=== PATIENT | female | born 1975 | race Caucasian/White ===

== ENCOUNTER 2016-07-24 07:35 | Inpatient (IN) | payer BC, OTHER ==
[2016-07-24] MEDS ORDERED: ELECTROLYTE-148 SOLN 500 ML IV SCH ×2 (07:45→08:15)
[2016-07-24] MEDS ORDERED: CITRIC ACID/SODIUM CITRATE 30 ML UNIT-DOSE CUP PO ONE (07:45)
[2016-07-24] MEDS ORDERED: TUBERCULIN PPD 5 TU/0.1ML SYRINGE (IN PATIENT USE ONLY) ID ONE (08:15)
[2016-07-24 08:25] VITALS: BMI 29.1
[2016-07-24] MEDS ORDERED: ONDANSETRON 4 MG/2 ML VIAL IVPB PRN (08:43)
[2016-07-24] MEDS ORDERED: IBUPROFEN 600 MG TABLET (FP) PO PRN (08:43)
[2016-07-24] MEDS ORDERED: morphine SULFATE/Preservative Free 0.5 MG/ML (1cc Syringe) EP ONE (08:43)
--- NOTE | 2016-07-24 09:18 | HP ---
Past Medical History - Primary Care Physician PCP:: Roberto Rahman - Admission Chief Complaint: 37 weeks, iugr, ama, requesting c/s History of Present Illness: 41 yo f 37 weeks with hx of iugr, elevated umbilical artery doppler , advised by [facility] Dr aly to be delivered at 37 weeks, cx clp. head out of pelvis , declined induction wants c/s, risks of c/s discussed, fully aware of all risks History Source: Patient Limitations to Obtaining History: No Limitations - Past Medical History Gastrointestinal: Yes: Gastritis ...: 2 ...Para: 0 ...Spon : 1 ...EDC by Sono: 08/09/16 Endocrine: Yes: Hypothyroidism (on levothyroxine) - Past Surgical History Hx Myomectomy: No Hx Transabdominal Cerclage: No - Smoking History Smoking history: Never smoked Have you smoked in the past 12 months: No - Alcohol/Substance Use Hx Alcohol Use: No History of Substance Use: reports: None - Social History Usual Living Arrangement: Yes: With Spouse History of Recent Travel: No Home Medications - Allergies Allergies/Adverse Reactions: Allergies Allergy/AdvReac Type Severity Reaction Status Date / Time No Known Drug Allergies Allergy Verified 07/21/16 06:20 - Home Medications Home Medications: Ambulatory Orders Levothyroxine [Synthroid -] 50 mcg PO DAILY@0700 04/18/16 Pnv95/Ferrous Fumarate/FA [ Vitamin Tablet] 1 each PO DAILY 05/31/16 Review of Systems - Review of Systems Constitutional: reports: No Symptoms Eyes: reports: No Symptoms HENT: reports: No Symptoms Neck: reports: No Symptoms Cardiovascular: reports: No Symptoms Respiratory: reports: No Symptoms Gastrointestinal: reports: No Symptoms Genitourinary: reports: No Symptoms Breasts: reports: No Symptoms Reported Integumentary: reports: No Symptoms Neurological: reports: No Symptoms Endocrine: reports: No Symptoms Hematology/Lymphatic: reports: No Symptoms Psychiatric: reports: No Symptoms 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 - Maternity Vital Signs: Vital Signs Temperature 98.1 F 07/24/16 08:10 Pulse Rate 66 07/24/16 08:10 Respiratory Rate 20 07/24/16 08:10 Blood Pressure 113/70 07/24/16 08:10 O2 Sat by Pulse Oximetry (%) Constitutional: Yes: Well Nourished, No Distress, Calm Eyes: Yes: WNL, Conjunctiva Clear, EOM Intact HENT: Yes: WNL, Atraumatic, Normocephalic Neck: Yes: WNL, Supple, Trachea Midline Cardiovascular: Yes: WNL, Regular Rate and Rhythm Breast(s): Yes: WNL - Abdominal Exam/OB Fundal Height: 36 Number of Fetuses: Single Presentation: Vertex Contractions: No Regularity: Irritability Intensity: Unaware Monitor Mode: External Heart Rate (range): 140 Heart Rate Location: [facility] Category: I Accelerations: Uniform Decelerations: None - Vaginal Exam/OB Vaginal Bleediing: No Speculum Exam: No Dilatation (cm): closed Effacement (%): 0 Amniotic Membrane Status: Intact Presentation: Vertex/Position Station: -4 - 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 Musculoskeletal: Yes: WNL Extremities: Yes: WNL Integumentary: Yes: WNL ...Motor Strength: WNL Psychiatric: Yes: WNL Problem List - Problems (1) with 37 or more completed weeks gestation Code(s): DBE9648 - (2) Intrauterine growth restriction (IUGR) affecting care of mother Code(s): O36.5990 - MATERN CARE FOR OTH OR SUSP POOR FETL GRTH, UNSP TRI, UNSP Qualifiers: Fetus number: single or unspecified fetus Qualified Code(s): - (3) Conceived by in vitro fertilization Code(s): Z78.9 - OTHER SPECIFIED HEALTH STATUS (4) Advanced maternal age (AMA) in Code(s): TUP0016 - Assessment/Plan requesting c/s rba discussed
[2016-07-24] MEDS ORDERED: diphenhydrAMINE HCL 25 MG CAPSULE (FP) PO PRN (10:11)
[2016-07-24] MEDS ORDERED: WITCH HAZEL 50% (TUCKS) 40 PAD/JAR PAD TP PRN (10:11)
[2016-07-24] MEDS ORDERED: METHYLERGONOVINE MALEATE 0.2 MG/1 ML AMP IM PRN (10:11)
[2016-07-24] MEDS ORDERED: BENZOCAINE 28 GM HEMORRHOIDAL OINTMENT PR PRN (10:11)
[2016-07-24] MEDS ORDERED: oxyCODONE HCL 5 MG TABLET PO PRN (10:11)
[2016-07-24] MEDS ORDERED: IBUPROFEN 800 MG/8 ML IJ IVPB PRN (10:11)
[2016-07-24] MEDS ORDERED: BENZOCAINE 20% 57 GM BOTTLE TP PRN (10:11)
[2016-07-24] MEDS ORDERED: OXYTOCIN 20 UNITS in 0.9% NS 1,000 ML IV SCH (10:15)
[2016-07-24 10:18] LABS: ARTERIAL BLD GAS O2 SATURATION 27.6 % (90-98.9); ARTERIAL BLOOD GAS HCO3 26.1 meq/L (22-26)
[2016-07-24 10:21] LABS: ARTERIAL BLOOD GAS PO2 16.2 mmHg (80-100); ARTERIAL BLOOD GAS pH 7.34 (7.35-7.45)
[2016-07-24 10:25] LABS: VENOUS PH 7.39 (7.32-7.42)
--- NOTE | 2016-07-24 10:51 | OP ---
DATE OF OPERATION: 07/24/2016 PREOPERATIVE DIAGNOSIS: 47 weeks, advanced maternal age, intrauterine growth retardation, elevated umbilical artery Doppler, and in vitro fertilization , noninducible cervix, request of a section. POSTOPERATIVE DIAGNOSIS: 47 weeks, advanced maternal age, intrauterine growth retardation, elevated umbilical artery Doppler, and in vitro fertilization , noninducible cervix, request of a section. PROCEDURE: Primary low segment transverse section. SURGEON: Roberto Rahman MD SUPERINTENDENT WAREHOUSE: Toi Guallpa MD ANESTHESIA: Spinal. ANESTHESIOLOGIST: Ashkan Garcia MD ESTIMATED BLOOD LOSS: 500 mL. FINDINGS: A live baby girl 9/9, left occiput posterior position. DESCRIPTION OF PROCEDURE: The patient was taken to the operating room under adequate spinal anesthesia. Abdomen and perineum was prepped and draped. Pfannenstiel abdominal skin incision was made. Abdominal wall was cut layer by layer until the peritoneum was exposed and incised. Upon entering the abdominal cavity, lower uterine segment was identified, and uterovesical fold of peritoneum established. Bladder was pushed down. The of the [place] retractor in the pelvis. A low transverse uterine incision was made. Incision was extended laterally. Amniotic sac was entered. Clear fluid. Head delivered from left occiput posterior position. Nasopharynx was suctioned, and live baby girl was delivered without any difficulty. Placenta was delivered manually. Uterine cavity was cleaned of all remaining tissue. Uterine incision was closed in 2 layers, the first layer with 0 Biosyn continuous suture, the second layer with 0 Biosyn imbricating the first layer. Bladder flap was closed with 0 Biosyn continuous suture. Both tubes and ovaries were checked and normal. No active bleeding was seen. All of the lap pad, sponge, and instrument counts were correct. Peritoneum was closed with 0 Biosyn continuous suture. Muscles were brought together with interrupted sutures of 0 Biosyn. Fascia was closed with 0 Biosyn continuous suture, subcutaneous fat interrupted suture of 0 Biosyn, and the skin was closed with 3-0 Vicryl subcuticular continuous suture. The patient tolerated the procedure well and left the OR in good condition. ROBERTO RAHMAN M.D. [id number]
[2016-07-24] MEDS: IBUPROFEN 800 MG/8 ML IJ IVPB PRN (12:15)
[2016-07-24] MEDS ORDERED: DEXTROSE 5%-LACTATED RINGERS 1,000 ML IV SCH (18:15)
[2016-07-24] MEDS: CEFAZOLIN (PRE-DOCKED) 50 ML IVPB SCH (18:30)
[2016-07-25] MEDS: CEFAZOLIN (PRE-DOCKED) 50 ML IVPB SCH (01:27)
[2016-07-25] MEDS: IBUPROFEN 800 MG/8 ML IJ IVPB PRN (04:59)
[2016-07-25] MEDS: LEVOTHYROXINE NA 50 MCG TABLET (FP) PO SCH (06:30)
[2016-07-25 06:47] LABS: BASOPHIL 0.3 % (0-2.0); EOSINOPHIL 0.3 % (0-4.5); MCH 28.7 pg (25.7-33.7); MEAN PLT VOLUME 10.7 fl (7.5-11.1); NEUTROPHILS 84.3 % (42.8-82.8); PLATELET COUNT 76 K/MM3 (134-434); RDW 16.5 % (11.6-15.6); WHITE BLOOD COUNT 12.5 K/mm3 (4.0-10.0)
[2016-07-25] MEDS: PRENATAL VITAMINS W/ FOLIC ACID TABLET (FP) PO SCH (09:00)
[2016-07-25] MEDS: ENOXAPARIN NA (PORCINE) 40 MG/0.4 ML DISP.SYRIN SQ SCH (09:01)
--- NOTE | 2016-07-25 10:43 | PN ---
Progress Note (short form) - Note Progress Note: Procedure Note Procedure: Anesthesia post op note. S/P in Spinal. Pat seen and examined. VSS. No apparent post anesthesia complications. Signed off.
[2016-07-25] MEDS: ACETAMINOPHEN 325 MG TABLET (FP) PO PRN ×2 (11:31→16:15)
[2016-07-25] MEDS: oxyCODONE HCL 5 MG TABLET PO PRN ×3 (11:33→21:21)
[2016-07-25] MEDS: SIMETHICONE 80 MG TAB.CHEW (FP) PO PRN ×3 (11:33→21:20)
[2016-07-25] MEDS: BISACODYL 10 MG SUPP.RECT RC PRN (16:17)
--- NOTE | 2016-07-25 18:02 | PN ---
Post Progress Note - Subjective Subjective: No complaints. Post Day: 1 Type of Delivery: Primary C/S Vital Signs: Vital Signs Temperature 98 F 07/25/16 10:00 Pulse Rate 60 07/25/16 10:00 Respiratory Rate 20 07/25/16 10:00 Blood Pressure 115/65 07/25/16 10:00 O2 Sat by Pulse Oximetry (%) Breast Exam: Yes: Soft Uterus: Yes: Fundus Firm, Non-tender Incision: Yes: Dressing dry and intact Abdomen/GI: Yes: Abdomen soft Lochia: Yes: Rubra Lochia, amount: Small Extremities: Yes: Calves non-tender Perineum: Yes: Intact Activity: Ambulating - Labs Labs: CBC WBC 12.5 K/mm3 (4.0-10.0) H D 07/25/16 05:46 RBC 3.67 M/mm3 (3.60-5.2) 07/25/16 05:46 Hgb 10.5 GM/dL (10.7-15.3) L D 07/25/16 05:46 Hct 31.9 % (32.4-45.2) L 07/25/16 05:46 MCV 87.0 fl (80-96) 07/25/16 05:46 MCHC 33.0 g/dl (32.0-36.0) 07/25/16 05:46 RDW 16.5 % (11.6-15.6) H 07/25/16 05:46 Plt Count 76 K/MM3 (134-434) L D 07/25/16 05:46 MPV 10.7 fl (7.5-11.1) 07/25/16 05:46 Neutrophils % 84.3 % (42.8-82.8) H 07/25/16 05:46 Lymphocytes % 10.9 % (8-40) D 07/25/16 05:46 Monocytes % 4.2 % (3.8-10.2) 07/25/16 05:46 Eosinophils % 0.3 % (0-4.5) 07/25/16 05:46 Basophils % 0.3 % (0-2.0) 07/25/16 05:46 Assessment/Plan 41yo P1 s/p primary LT C/S. Pt is doing well postop. Ambulation encouraged Low plt count noted. Repeat tomorrow. No evid of PEC or DIC.
[2016-07-25] MEDS: IBUPROFEN 600 MG TABLET (FP) PO PRN (21:20)
[2016-07-26] MEDS: IBUPROFEN 600 MG TABLET (FP) PO PRN ×4 (05:58→21:40)
[2016-07-26] MEDS: SIMETHICONE 80 MG TAB.CHEW (FP) PO PRN ×4 (05:58→21:40)
[2016-07-26] MEDS: ACETAMINOPHEN 325 MG TABLET (FP) PO PRN ×4 (05:59→21:40)
[2016-07-26] MEDS: BISACODYL 10 MG SUPP.RECT RC PRN (06:13)
[2016-07-26] MEDS: LEVOTHYROXINE NA 50 MCG TABLET (FP) PO SCH (06:14)
[2016-07-26 08:50] LABS: BASOPHIL 0.2 % (0-2.0); EOSINOPHIL 0.2 % (0-4.5); MCH 28.5 pg (25.7-33.7); MCHC 32.7 g/dl (32.0-36.0); MEAN CELL VOLUME 87.2 fl (80-96); MEAN PLT VOLUME 10.5 fl (7.5-11.1); NEUTROPHILS 84.7 % (42.8-82.8); PLATELET COUNT 94 K/MM3 (134-434); RDW 16.7 % (11.6-15.6); WHITE BLOOD COUNT 12.7 K/mm3 (4.0-10.0)
--- NOTE | 2016-07-26 08:54 | PN ---
Post Progress Note - Subjective Subjective: No complaints, lochia light, (+) flatus Post Day: 2 Type of Delivery: Primary C/S Vital Signs: Vital Signs Temperature 97.7 F 07/26/16 08:43 Pulse Rate 64 07/26/16 08:43 Respiratory Rate 18 07/26/16 08:43 Blood Pressure 111/66 07/26/16 08:43 O2 Sat by Pulse Oximetry (%) Breast Exam: Yes: Soft Uterus: Yes: Fundus Firm, Fundus below umbilicus, Non-tender Incision: Yes: Dressing dry and intact Abdomen/GI: Yes: Abdomen soft, Passing flatus, Tolerating PO Lochia: Yes: Rubra Lochia, amount: Small Extremities: Yes: Calves non-tender, Edema Perineum: Yes: Intact Activity: Ambulating - Labs Labs: CBC WBC 12.5 K/mm3 (4.0-10.0) H D 07/25/16 05:46 RBC 3.67 M/mm3 (3.60-5.2) 07/25/16 05:46 Hgb 10.5 GM/dL (10.7-15.3) L D 07/25/16 05:46 Hct 31.9 % (32.4-45.2) L 07/25/16 05:46 MCV 87.0 fl (80-96) 07/25/16 05:46 MCHC 33.0 g/dl (32.0-36.0) 07/25/16 05:46 RDW 16.5 % (11.6-15.6) H 07/25/16 05:46 Plt Count 76 K/MM3 (134-434) L D 07/25/16 05:46 MPV 10.7 fl (7.5-11.1) 07/25/16 05:46 Neutrophils % 84.3 % (42.8-82.8) H 07/25/16 05:46 Lymphocytes % 10.9 % (8-40) D 07/25/16 05:46 Monocytes % 4.2 % (3.8-10.2) 07/25/16 05:46 Eosinophils % 0.3 % (0-4.5) 07/25/16 05:46 Basophils % 0.3 % (0-2.0) 05/17/17 05:46 Assessment/Plan 41yo P1 s/p primary LT C/S. Pt is doing well postop. Ambulation encouraged Low plt count noted. The CBC today is pending No evidence of PEC or DIC.
[2016-07-26] MEDS: ENOXAPARIN NA (PORCINE) 40 MG/0.4 ML DISP.SYRIN SQ SCH (09:38)
[2016-07-26] MEDS: PRENATAL VITAMINS W/ FOLIC ACID TABLET (FP) PO SCH (09:45)
[2016-07-26] MEDS: SENNOSIDES/DOCUSATE COMBO (SENNA PLUS) TABLET (UD) PO PRN (21:41)
[2016-07-27] MEDS: SIMETHICONE 80 MG TAB.CHEW (FP) PO PRN ×4 (05:55→21:47)
[2016-07-27] MEDS: ACETAMINOPHEN 325 MG TABLET (FP) PO PRN ×4 (05:55→21:47)
[2016-07-27] MEDS: IBUPROFEN 600 MG TABLET (FP) PO PRN ×4 (05:56→21:47)
[2016-07-27] MEDS: LEVOTHYROXINE NA 50 MCG TABLET (FP) PO SCH (06:55)
[2016-07-27 08:26] LABS: BASOPHIL 0.4 % (0-2.0); EOSINOPHIL 0.9 % (0-4.5); MCH 29.2 pg (25.7-33.7); MCHC 33.4 g/dl (32.0-36.0); MEAN CELL VOLUME 87.4 fl (80-96); MEAN PLT VOLUME 10.8 fl (7.5-11.1); NEUTROPHILS 81.5 % (42.8-82.8); PLATELET COUNT 114 K/MM3 (134-434); WHITE BLOOD COUNT 10.5 K/mm3 (4.0-10.0)
[2016-07-27] MEDS: PRENATAL VITAMINS W/ FOLIC ACID TABLET (FP) PO SCH (10:14)
[2016-07-27] MEDS: ENOXAPARIN NA (PORCINE) 40 MG/0.4 ML DISP.SYRIN SQ SCH (10:14)
--- NOTE | 2016-07-27 12:00 | PN ---
Progress Note (short form) - Note Progress Note: no c/o voids ok, normal BM CBC, BMP 07/27/16 07:40 Last Vital Signs Temp Pulse Resp BP Pulse Ox 98.5 F 64 20 120/74 07/27/16 09:04 07/27/16 09:04 07/27/16 09:04 07/27/16 09:04 abdomen soft, no distension, no cva incision dry, clean no calf tenderness no excess vaginal bleeding plan ambulate, d/c home in am Problem List - Problems (1) with 37 or more completed weeks gestation Code(s): [id number] - (2) Intrauterine growth restriction (IUGR) affecting care of mother Code(s): O36.5990 - MATERN CARE FOR OTH OR SUSP POOR FETL GRTH, UNSP TRI, UNSP Qualifiers: Fetus number: single or unspecified fetus (3) Conceived by in vitro fertilization Code(s): Z78.9 - OTHER SPECIFIED HEALTH STATUS (4) Advanced maternal age (AMA) in Code(s): [id number] -
[2016-07-27] MEDS: SENNOSIDES/DOCUSATE COMBO (SENNA PLUS) TABLET (UD) PO PRN (21:47)
[2016-07-28] MEDS: IBUPROFEN 600 MG TABLET (FP) PO PRN ×2 (05:54→12:00)
[2016-07-28] MEDS: ACETAMINOPHEN 325 MG TABLET (FP) PO PRN ×2 (05:54→12:01)
[2016-07-28] MEDS: SIMETHICONE 80 MG TAB.CHEW (FP) PO PRN ×2 (05:54→12:01)
[2016-07-28] MEDS: LEVOTHYROXINE NA 50 MCG TABLET (FP) PO SCH (06:28)
[2016-07-28] MEDS: PRENATAL VITAMINS W/ FOLIC ACID TABLET (FP) PO SCH (10:05)
[2016-07-28] MEDS: ENOXAPARIN NA (PORCINE) 40 MG/0.4 ML DISP.SYRIN SQ SCH (10:05)
[2016-07-28 11:05] VITALS: BP 123/66; PULSE 58; TEMP 98.5
--- NOTE | 2016-08-01 13:05 | PATH ---
Surgical Pathology Report Patient Name: XENA JENKINS Med. Rec. #: [id number] /Age/Gender: 1975 (Age: 41) / F Account: [id number] Location: [facility] OBS/SOLAR DESIGN ENGINEER Taken: 07/24/2016 Received: 07/25/2016 Reported: 08/01/2016 Physicians: Roberto Rahman M.D. Specimen(s) Received PLACENTA Clinical History , primary c/section, AMA, IUGR,; SPAB x1 Final Diagnosis PLACENTA, DELIVERY: MULTIFOCALLY DISRUPTED, SMALL (<400 GM), THIRD TRIMESTER PLACENTA WITH MILD INCREASE IN PREVILLOUS, PERIVILLOUS, AND PRECHORIONIC FIBRIN DEPOSITION, THREE VESSEL UMBILICAL CORD, AND PLACENTAL MEMBRANES WITH LAMELLAR NECROSIS. Electronically Signed Justin Clement M.D. Gross Description The specimen is received fresh, labeled "placenta" and is a 322 gram, 14.0 x 14.0 x 2.8 cm aggregate of 2 separate portions of a markedly torn and fragmented placenta with attached membranes and umbilical cord. The attached membranes are bob, translucent with focal opacities and insert marginally. The umbilical cord measures 12 cm in length and averages 1 cm in diameter. The cord displays velamentous insertion. No true knots or strictures are identified. Cut surface of the umbilical cord reveals 3 vessels. The surface is thompson-blue with fibrin deposition and appropriate caliber vessels. The maternal surface is red-brown, markedly fragmented and disrupted. Sectioning reveals red-brown, spongy parenchyma. No focal lesions are identified. Surface Supervisor sections are submitted in 4 cassettes as follows: 1- membrane rolls and umbilical cord; 2- 4 - full thickness sections of placenta. 07/31/2016 [facility]07/31/2016
--- NOTE | 2016-08-14 12:11 | DS ---
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 Vital Signs: Vital Signs Temperature 98.5 F 07/28/16 10:00 Pulse Rate 58 L 07/28/16 10:00 Respiratory Rate 20 07/28/16 10:00 Blood Pressure 123/66 07/28/16 10:00 O2 Sat by Pulse Oximetry (%) Constitutional: Yes: Well Nourished, No Distress, Calm Eyes: Yes: WNL, Conjunctiva Clear, EOM Intact HENT: Yes: WNL, Atraumatic, Normocephalic Neck: Yes: WNL, Supple, Trachea Midline Cardiovascular: Yes: WNL, Regular Rate and Rhythm Respiratory: Yes: WNL, Regular, CTA Bilaterally Gastrointestinal: Yes: WNL ...Rectal Exam: Yes: WNL Renal/: Yes: WNL ....Post : Yes: Uterus firm, Uterus non-tender, Slight lochia rubra Breast(s): Yes: WNL Musculoskeletal: Yes: WNL Extremities: Yes: WNL Edema: No Integumentary: Yes: WNL Wound/Incision: Yes: Clean/Dry, Well Approximated, Sutures Intact Neurological: Yes: WNL, Alert, Oriented ...Motor Strength: WNL Psychiatric: Yes: WNL, Alert, Oriented Labs: CBC, BMP 07/27/16 07:40 Delivery - Delivery Section: Primary, Low Flap Transverse (no complication) Type of Anesthesia: Spinal Episiotomy/Laceration: None EBL (cc): 500 Delivery, Single - Stages of Labor Date of Delivery: 07/24/16 Time of Delivery: 09:41 Time Placenta Delivered: 09:43 Placenta: Yes: Expressed - Condition 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 Present: Yes Name: Arian Romeo Infant Gender: Female Weight: 5 lb 1 oz Position: Left, OT Total Hours ROM (Hrs/Mins): 1 min - 1 Minute Total Score: 8 5 Minutes Total Score: 9 - Merna Feeding Plan Initial Plan: Elected not to breastfeed exclusively throughout hospitalization Discharge Summary Reason For Visit: C/SECTION Procedures: Principal: primary LST c/s Hospital Course: non complicated Condition: Good - Instructions Diet, Activity, Other Instructions: regular diet, follow office 2weeks Referrals: Roberto Rahman MD [Staff Physician] - Disposition: HOME - Home Medications Comprehensive Discharge Medication List: Ambulatory Orders Levothyroxine [Synthroid -] 50 mcg PO DAILY@0700 04/18/16 Pnv95/Ferrous Fumarate/FA [ Vitamin Tablet] 1 each PO DAILY 05/31/16 Ibuprofen [Motrin -] 600 mg PO QID #28 tablet 07/26/16
== END 2016-07-28 14:30 | disposition home or self-care (01) | DRG 766 ==
LOC: JLDR 07:35 → J3W 17:40
PROVIDERS: ADMIT Obstetrics & Gynecology; ATTEND Obstetrics & Gynecology
PROC: 10D00Z1 Extraction of Products of Conception, Low, Open Approach (ICD-10-PCS; principal; 2016-07-24)
DX: O36.5930 Maternal care for other known or suspected poor fetal growth, third trimester, not applicable or unspecified (principal); O99.284 Endocrine, nutritional and metabolic diseases complicating childbirth; E03.9 Hypothyroidism, unspecified; Z3A.37 37 weeks gestation of pregnancy; Z37.0 Single live birth; Z78.9 Other specified health status
CPT/HCPCS: 36415; 36600; 82803; 85025; 88307-TC

== ENCOUNTER 2019-02-19 18:03 | Emergency (ER) | payer BC, OTHER ==
[2019-02-19 18:08] VITALS: BP 126/58; PULSE 87; TEMP 98; BMI 28.2
[2019-02-19] MEDS ORDERED: ACETAMINOPHEN 325 MG TABLET (FP) PO ONE (18:57)
[2019-02-19] MEDS ORDERED: ACETAMINOPHEN 325 MG TABLET (FP) ONE (19:05)
--- NOTE | 2019-02-19 19:12 | PDOC ---
*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 - Vital Signs Last Vital Signs Temp Pulse Resp BP Pulse Ox 98 F 87 18 126/58 L 99 02/19/19 18:05 02/19/19 18:05 02/19/19 18:05 02/19/19 18:05 02/19/19 18:05 Medical Decision Making - Medical Decision Making 02/19/19 19:12 Ms. Higgins is a 43 y/o F (hx of 1 miscarriage), , LMP nov presenting with vaginal spotting from today. Pt had (+) home test Saw OB as an outpatient who did Serum Preg and said it was positive but low Pt is supposed to return for follow up on feb 27 Pt has lower abd discomfort and spotting Pt seen by Midlevel Provider under my direct supervision Pt interviewed and examined Agree with DEONTE exam Ancillary studies reviewed U/S - no IUP Laboratory Tests 02/19/19 02/19/19 19:10 19:10 Beta HCG, Quant 69.0 Urine Blood 3+ H Ur Leukocyte Esterase 1+ H Urine WBC (Auto) 19 Urine RBC (Auto) 335 I agree with plan as outlined by Midlevel Provider 02/19/19 19:51 02/19/19 20:25 02/19/19 20:28 Discharge - Discharge Information Problems reviewed: Yes Clinical Impression/Diagnosis: Vaginal bleeding affecting early Condition: Stable Disposition: HOME - Follow up/Referral - Patient Discharge Instructions Additional Instructions: Thank you for choosing [facility]. It was a pleasure taking care of you. Please return to the ER in 2 days for repeat blood work Recommend rest (no heavy work, no intercourse) until resolution of symptoms Return to the Emergency Department if your symptoms worsen or persist or have other concerning symptoms. Elisa por elegir el [facility]. Fue un placer cuidar de ti. Regrese a la roman de emergencias en 2 burgess para repetir el anlisis de doug. Se recomienda descansar (sin trabajo pesado, sin relaciones sexuales) hasta la resolucin de los sntomas Regrese al departamento de emergencias si ankit sntomas empeoran o persisten o si tiene otros sntomas preocupantes. - Post Discharge Activity
--- NOTE | 2019-02-19 19:22 | PDOC ---
History of Present Illness - General Chief Complaint: Vaginal Bleeding Stated Complaint: FIVE WK LA/VAGINAL BLEEDING Time Seen by Provider: 02/19/19 18:36 History Source: Patient Exam Limitations: Language Barrier (Phone manager application development used) Past History - Past Medical History Allergies/Adverse Reactions: Allergies Allergy/AdvReac Type Severity Reaction Status Date / Time No Known Drug Allergies Allergy Verified 02/19/19 18:08 Home Medications: Ambulatory Orders NK [No Known Home Medication] 02/19/19 Anemia: No Asthma: No Cancer: No Cardiac Disorders: No CVA: No COPD: No CHF: No Dementia: No Diabetes: No GI Disorders: Yes (CHRONIC GASTRITIS) Disorders: No HTN: No Hypercholesterolemia: No Liver Disease: No Seizures: No Thyroid Disease: Yes - Surgical History Abdominal Surgery: No Appendectomy: No Cardiac Surgery: No Cholecystectomy: No Lung Surgery: No Neurologic Surgery: No Orthopedic Surgery: No - Reproductive History Is Patient Now?: Yes (#): 1 Para: 0 Therapeutic (s) & number: No Spontaneous : 0 - Psycho Social/Smoking Cessation Hx Smoking History: Never smoked Have you smoked in the past 12 months: No Hx Alcohol Use: No Drug/Substance Use Hx: No Substance Use Type: None Hx Substance Use Treatment: No *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 - Vital Signs Last Vital Signs Temp Pulse Resp BP Pulse Ox 98 F 87 18 126/58 L 99 02/19/19 18:05 02/19/19 18:05 02/19/19 18:05 02/19/19 18:05 02/19/19 18:05 - 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 General Appearance: No: Apparent Distress Respiratory/Chest: positive: Lungs Clear, Normal Breath Sounds. negative: Respiratory Distress Cardiovascular: positive: Regular Rhythm, Regular Rate, S1, S2. negative: Murmur Gastrointestinal/Abdominal: positive: Normal Bowel Sounds, Soft. negative: Tender, Distended, Guarding, Rebound Musculoskeletal: negative: CVA Tenderness, CVA Tenderness (R), CVA Tenderness (L ) Neurologic: positive: Alert ED Treatment Course - RADIOLOGY Radiology Studies Ordered: Category Date Time Status TRANSVAGINAL US PREG [US] Stat Ultrasound 02/19/19 18:37 Ordered Medical Decision Making - Medical Decision Making 43 y/o F (hx of 1 miscarriage), , currently 5 weeks , presents with light vaginal spotting from today. Patient found out she was via home test. She then saw her OB, Dr. Chaparro, last week, who did serum Bhcg which was positive, but was told number was low and needed to come back for repeat testing (appointment is pending). Also with mild lower abdominal discomfort. Denies fever, sob, cp, n/v, dysuria. R/O ectopic, consider threatened Plan: Bhcg, T&S, UA/UCx, pelvic US 02/19/19 19:20 Laboratory Last Values Beta HCG, Quant 69.0 mIU/ml 02/19/19 19:10 Urine Color Yellow 02/19/19 19:10 Urine Appearance Cloudy 02/19/19 19:10 Urine pH 5.5 (5.0-8.0) 02/19/19 19:10 Ur Specific [place] 1.017 (1.010-1.035) 02/19/19 19:10 Urine Protein 1+ (NEGATIVE) H 02/19/19 19:10 Urine Glucose (UA) Negative (NEGATIVE) 02/19/19 19:10 Urine Ketones Negative (NEGATIVE) 02/19/19 19:10 Urine Blood 3+ (NEGATIVE) H 02/19/19 19:10 Urine Nitrite Negative (NEGATIVE) 02/19/19 19:10 Urine Bilirubin Negative (NEGATIVE) 02/19/19 19:10 Urine Urobilinogen 0.2 mg/dL (0.2-1.0) 02/19/19 19:10 Ur Leukocyte Esterase 1+ (NEGATIVE) H 02/19/19 19:10 Urine WBC (Auto) 19 /hpf (0-5) 02/19/19 19:10 Urine RBC (Auto) 335 /hpf (0-4) 02/19/19 19:10 Urine Casts (Auto) 8 /lpf (0-8) 02/19/19 19:10 U Epithel Cells (Auto) 0.5 /HPF (0-5/HPF) 02/19/19 19:10 Urine Bacteria (Auto) 93.9 /hpf (NEGATIVE) 02/19/19 19:10 Bhcg is 69 TVUS unable to visualize IUP Possibly this is early Patient's next appt with Dr. Chaparro in 02/27 Advised to come back to ED in 2 days for repeat Bhcg UA was reviewed - mostly blood UCx sent 02/19/19 20:31 Discharge - Discharge Information Problems reviewed: Yes Clinical Impression/Diagnosis: Vaginal bleeding affecting early Condition: Stable Disposition: HOME - Admission No - Additional Discharge Information Prescription Drug Monitoring Program (I-STOP) results: I-STOP not reviewed - Follow up/Referral - Patient Discharge Instructions Additional Instructions: Thank you for choosing [facility]. It was a pleasure taking care of you. Please return to the ER in 2 days for repeat blood work Recommend rest (no heavy work, no intercourse) until resolution of symptoms Return to the Emergency Department if your symptoms worsen or persist or have other concerning symptoms. Elisa por elegir el [facility]. Fue un placer cuidar de ti. Regrese a la roman de emergencias en 2 burgess para repetir el anlisis de doug. Se recomienda descansar (sin trabajo pesado, sin relaciones sexuales) hasta la resolucin de los sntomas Regrese al departamento de emergencias si ankit sntomas empeoran o persisten o si tiene otros sntomas preocupantes. - Post Discharge Activity
[2019-02-19 19:27] LABS: EPI CELLS 0.5 /HPF (0-5/HPF); HYALINE CASTS 8 /lpf (0-8); PH,URINE 5.5 (5.0-8.0); URINE APPEARANCE CLOUDY; URINE BACTERIA 93.9 /hpf (NEGATIVE); URINE BILIRUBIN NEGATIVE (NEGATIVE); URINE COLOR YELLOW; URINE GLUCOSE (UA) NEGATIVE (NEGATIVE); URINE KETONE NEGATIVE (NEGATIVE); URINE LEUK ESTERASE 1+ (NEGATIVE); URINE NITRITE NEGATIVE (NEGATIVE); URINE PROTEIN 1+ (NEGATIVE); URINE RBC 335 /hpf (0-4); URINE UROBILINOGEN 0.2 mg/dL (0.2-1.0); URINE WBC 19 /hpf (0-5)
[2019-02-19] MEDS ORDERED: CEPHALEXIN MONOHYDRATE 500 MG CAPSULE (UD) ONE (20:05)
[2019-02-19] MEDS: CEPHALEXIN MONOHYDRATE 500 MG CAPSULE (UD) PO ONE ×2 (20:08→20:31)
== END 2019-02-19 20:54 | disposition home or self-care (01) ==
LOC: JER 18:03
DX: O26.893 Other specified pregnancy related conditions, third trimester (principal); N93.9 Abnormal uterine and vaginal bleeding, unspecified; Z3A.01 Less than 8 weeks gestation of pregnancy; K92.9 Disease of digestive system, unspecified
CPT/HCPCS: 36415; 76817-TC; 81003; 84702; 86850; 86900; 86901; 87086; 99283-25